=== PATIENT | female | born 1940 | race Caucasian/White ===

== ENCOUNTER 2025-01-04 06:54 | Day surgery (SDC) | payer OTHER, SELFPAY | END 2025-01-04 09:15 | disposition home or self-care (01) | LOC: CATH 06:54 | PROVIDERS: ATTENDING PHYSICIAN Internal Medicine Interventional Cardiology; FAMILY PHYSICIAN Family Medicine | DX: I48.91 Unspecified atrial fibrillation (principal); I44.0 Atrioventricular block, first degree; I49.8 Other specified cardiac arrhythmias; I10 Essential (primary) hypertension; M19.90 Unspecified osteoarthritis, unspecified site | CPT/HCPCS: 92960; 93005 ==